=== PATIENT | female | born 1940 | race Caucasian/White ===

== ENCOUNTER 2020-01-03 09:33 | Inpatient (IN) | payer MEDICARE ==
[~2020-01-03] VITALS: Ht 160 cm; Wt 76.0 kg
[~2020-01-03 09:33] MED LIST: ACET325 PO; LEVSOD50 PO; VITAMIN D325 MCG PO
[2020-01-03 10:06] LABS: BASOPHILS ABSOLUTE AUTO 0.03 K/mm3 (0.00-0.23); BASOPHILS PERCENT AUTO 0 % (0-2); EOSINOPHILS ABSOLUTE AUTO 0.03 K/mm3 (0.00-0.68); EOSINOPHILS PERCENT AUTO 0 % (0-6); Hemoglobin 14.7 g/dL (11.5-16.0); IMMATURE GRAN ABSOLUTE AUTO 0.03 K/mm3 (0.00-0.10); IMMATURE GRAN PERCENT AUTO 0 % (0-1); LYMPHOCYTES ABSOLUTE AUTO 2.14 K/mm3 (0.84-5.20); LYMPHOCYTES PERCENT AUTO 15 % (21-46); MONOCYTES ABSOLUTE AUTO 0.99 K/mm3 (0.16-1.47); MONOCYTES PERCENT AUTO 7 % (4-13); Mean Corpuscular HGB 28.8 pg (26.0-34.0); Mean Corpuscular HGB Conc 32.7 g/dL (31.5-36.5); Mean Corpuscular Volume 88 fL (80-100); NEUTROPHILS ABSOLUTE AUTO 11.45 K/mm3 (1.96-9.15); NEUTROPHILS PERCENT AUTO 78 % (41-73); RDW Coefficient Variation 13.7 % (11.7-14.2); RDW Standard Deviation 44.4 fL (35.1-46.3); White Blood Cell Count 14.67 K/mm3 (4.00-11.30)
[2020-01-03 10:12] LABS: International Normalized Ratio 0.98; Prothrombin Time Results 10.5 Sec (9.7-11.5)
[2020-01-03 10:21] LABS: Mean Platelet Volume 12.2 fL (9.1-12.4); Platelet Count 178 K/mm3 (150-400)
[2020-01-03 10:45] LABS: Alanine Aminotransfer (ALT/SGP 23 U/L (12-78); Albumin, Blood 3.3 g/dL (3.4-5.0); Alk Phos 69 U/L (50-136); Anion Gap 7 mmol/L (6-16); Aspartate Aminotrans (AST/SGOT 127 U/L (12-37); Bilirubin, Total 0.4 mg/dL (0.1-1.0); Blood Urea Nitrogen 15 mg/dL (8-24); Bun/Creatinine Ratio 21.9 (12.0-20.0); CO2, Blood 25 mmol/L (21-32); Calcium, Blood 10.2 mg/dL (8.5-10.1); Chloride, Blood 102 mmol/L (98-108); Creatinine, Blood 0.68 mg/dL (0.40-1.00); Globulin, Blood 3.4 g/dL (2.2-4.0); Glomerular Filtration Rate >60 (60-); Glucose, Blood 119 mg/dL (70-99); Potassium, Blood 4.3 mmol/L (3.5-5.5); Sodium, Blood 134 mmol/L (136-145); Total Protein, Blood 6.7 g/dL (6.4-8.2)
--- NOTE | 2020-01-03 12:32 | NUR ---
Stat echocardiogram performed with Dr. Haider reviewing at bedside.
[2020-01-03] MEDS ORDERED: FLAX PO (13:45)
[2020-01-03] MEDS ORDERED: I-Vite1 EACH PO (13:46)
[2020-01-03] MEDS ORDERED: REMERON15 MG PO (15:29)
[2020-01-03] MEDS ORDERED: ALBU90OI6 INH (15:30)
[2020-01-03] MEDS ORDERED: Refresh Plus1 EACH BOTHEYES (15:33)
[2020-01-03] MEDS ORDERED: Omeprazole20 M1 PO (15:33)
[2020-01-03] MEDS ORDERED: WIXELA 100-501 EACH INH (15:34)
--- NOTE | 2020-01-03 16:23 | NUR ---
TO ICU 8 FROM OIL AGENT AT 1310, VSS, PT DENIES CP/PRESSURE/SOB/NAUSEA. HR 80'S NSR, PT ALERT AND ORIENTED X4, NO DRIPS INFUSING. TR BAND IN PLACE TO R RADIAL ACCESS SITE, SMALL HEMATOMA NOTED ABOVE TR BAND. OIL AGENT RN PLACED SECOND TR BAND PROXIMAL TO ORIGINAL BAND, NO ADDITIONAL GROWTH OF HEMATOMA NOTED AFTER SECOND BAND PLACED. DR. MENDOSA NOTIFIED OF HEMATOMA BY OIL AGENT RN, AT BEDSIDE TO ASSESS, NO NEW ORDERS. VS REMAIN STABLE, SISTER AT BEDSIDE. PT DENIES NEEDS, ASSESSMENTS COMPLETED.
--- NOTE | 2020-01-03 16:26 | NUR ---
UPDATE 1425: PT C/O 04/20 MID STERNAL CHEST PAIN AND PRESSURE, SOB, AND NAUSEA. NS INITIATED, NITRO SL ADMINISTERED X2, BP TOLERATED WELL BUT PT DENIES SYMPTOM RELIEF. EKG COMPLETED, DR. MENDOSA NOTIFIED, HAS VIEWED EKG, NEW ORDERS FOR MS AND NITRO GTT. MS 2MG ADMINISTERED, PT DENIES PAIN AFTER MS BUT STATES MILD SOB, MILD NAUSEA, AND MILD "HEAVINESS" IN CHEST REMAIN. DR. SCOTT, WILL REPEAT EKG AT 1600. VS REMAIN STABLE, HR 70'S-80'S SINUS. FAMILY AT BEDSIDE.
--- NOTE | 2020-01-03 16:31 | NUR ---
UPDATE EKG REPEATED AT 1600, VIEWED BY DR. NAVYA DR. ALSO AWARE OF CONTINUED SOB, NAUSEA, AND CHEST HEAVINESS C/O, NO NEW ORDERS AT THIS TIME. NITRO INFUSING AT 2MCG/MIN PER ORDER, VSS. TR BAND BEING DEFLATED SLOWLY, BRUISING NOTED UNDER BOTH TR BANDS BUT NO ADDITIONAL HEMATOMA GROWTH NOTED SINCE INITIAL EVALUATION. PT RESTING IN BED, DENIES NEEDS. FAMILY AT BEDSIDE. O2 2L/NC, LS CLEAR.
--- NOTE | 2020-01-03 19:17 | NUR ---
END OF SHIFT ATTEMPTED MULTIPLE TIMES TO DELFATE TR BAND, HEMATOMA INCREASED DISTAL TO ACCESS SITE. DISTAL TR BAND REINFLATED TO 8ML, PROXIMAL BAND REINFLATED TO 5ML. HEPARIN BOLUS ADMINISTERED, HEPARIN GTT INFUSING AT 15U PER ORDERS, VERIFIED WITH [place] FAY. NITRO GTT CONTNUES AT 2MCG, PT DENIES CHEST PAIN AND SOB AT THIS TIME. VSS, HR 80'S NSR, PT REMAINS ALERT, ORIENTED, AND APPROPRIATE. CMS AND RADIAL PULSE WNL TO RIGHT HAND. REPORT TO ONCOMING SHIFT.
--- NOTE | 2020-01-03 20:44 | NUR ---
ASSUMPTION OF CARE PT ALERT AND ORIENTED TO SELF, EVENT, PLACE AND FOLLOWING DIRECTIONS. OXYGEN SATURATIONS>90% ON RA, PLACED ON 3L PER NC WHILE SLEEPING TO MAINTAIN O2 SATS. MONITOR SHOWS SINUS RHYTHM, HR 80'S, BP STABLE, NITRO GTT @ 2mcg/min, HEPARIN @ 15u/kg (76kg, 22.8 ml/hr), PT DENIES ANY SOB CP/HEAVINESS AT THIS TIME. TR BAND x2 TO R WRIST, HEMATOMA PRESENT, SCANT BLOOD NOTED AT INSERTION SITE, DISTAL EXTREMITY WITH PURPLISH DISCOLORATION, PT DENIES ANY PAIN, NUMBNESS OR TINGLING IN R HAND, O2 PROBE IN PLACE ON R HAND FINGER, GOOD PLETH ON MONITOR. PT DENIES ANY GI/ ISSUES, TOLERATING PO INTAKE. PT EAGER TO AMBULATE AND GO HOME, PLEASANT AND COOPERATIVE, CALL LIGHT WITHIN REACH.
--- NOTE | 2020-01-03 23:59 | NUR ---
PT RESTS IN BED, AROUSABLE TO VERBAL STIMULI, PT REMAINS SOB CP/HEAVINESS FREE, BP LOW, NITRO PLACED ON SB. PT WITH QUESTIONS ABOUT CURRENT ILLNESS, CAUSES AND PREVENTABLE MEASURES. EDUCATED PT ABOUT HEALTHY DIET AND EXERCISE, PT EXPRESSES INTEREST IN CARDIAC REHAB AND DIET EDUCATION, STS SHE HAD PLANNED ON STARTING EXERCISE ROUTINE PRIOR TO [place].
[2020-01-04 00:51] LABS: BASOPHILS ABSOLUTE AUTO 0.02 K/mm3 (0.00-0.23); BASOPHILS PERCENT AUTO 0 % (0-2); EOSINOPHILS ABSOLUTE AUTO 0.05 K/mm3 (0.00-0.68); EOSINOPHILS PERCENT AUTO 0 % (0-6); Hematocrit 39.6 % (33.0-51.0); IMMATURE GRAN ABSOLUTE AUTO 0.05 K/mm3 (0.00-0.10); IMMATURE GRAN PERCENT AUTO 0 % (0-1); LYMPHOCYTES ABSOLUTE AUTO 1.79 K/mm3 (0.84-5.20); LYMPHOCYTES PERCENT AUTO 16 % (21-46); MONOCYTES ABSOLUTE AUTO 1.09 K/mm3 (0.16-1.47); MONOCYTES PERCENT AUTO 10 % (4-13); Mean Corpuscular HGB 29.1 pg (26.0-34.0); Mean Corpuscular HGB Conc 32.8 g/dL (31.5-36.5); Mean Corpuscular Volume 89 fL (80-100); Mean Platelet Volume 11.8 fL (9.1-12.4); NEUTROPHILS ABSOLUTE AUTO 8.43 K/mm3 (1.96-9.15); NEUTROPHILS PERCENT AUTO 74 % (41-73); Platelet Count 223 K/mm3 (150-400); RDW Coefficient Variation 13.7 % (11.7-14.2); RDW Standard Deviation 44.2 fL (35.1-46.3); Red Blood Cell Count 4.47 M/mm3 (3.80-5.20); White Blood Cell Count 11.43 K/mm3 (4.00-11.30)
[2020-01-04 01:05] LABS: International Normalized Ratio 1.1; Prothrombin Time Results 11.7 Sec (9.7-11.5)
[2020-01-04 01:11] LABS: Anion Gap 6 mmol/L (6-16); Blood Urea Nitrogen 10 mg/dL (8-24); Bun/Creatinine Ratio 15.8 (12.0-20.0); CHOL/HDL RATIO 3.7; CO2, Blood 24 mmol/L (21-32); Calcium, Blood 8.9 mg/dL (8.5-10.1); Chloride, Blood 109 mmol/L (98-108); Cholesterol 162 mg/dL (50-200); Creatinine, Blood 0.63 mg/dL (0.40-1.00); Glomerular Filtration Rate >60 (60-); Glucose, Blood 116 mg/dL (70-99); HDL Cholesterol 44 mg/dL (>39); LDL/HDL RATIO 2.2; Low Density Lipoprotein Chol 95 mg/dL (0-110); Potassium, Blood 3.7 mmol/L (3.5-5.5); Sodium, Blood 139 mmol/L (136-145); Triglycerides 114 mg/dL (30-160); Very Low Density Lipoprot Chol 22 mg/dL (6-32)
--- NOTE | 2020-01-04 06:24 | NUR ---
SHIFT SUMMARY PT AWAKE FOR MOST OF SHIFT, REMAINS ORIENTED. PT ON RA WHILE AWAKE AND 1.5L PER NC WHILE SLEEPING TO MAINTAIN O2 SATURATIONS>90%. MONITOR SHOWS SINUS RHYTHM, HR 70'S-80'S, PT HYPOTENSIVE WITH SBP 70'S-80'S AND MAPS 50'S, CALL TO DR CASTRO, 500ml LR BOLUS ORDERED, BP IMPROVED BUT NOW TRENDING DOWN THIS AM. NO SIGNS OF BLEEDING, R RADIAL SITE STABLE, TR BANDS REMOVED @ 0430 (SEE WOUND ASSESSMENT), PT DENIES DIZZINESS, EKG COMPLETED THIS AM, SEE CHART. NITRO GTT ON SB @ 0000 DUE TO HYPOTENSION (SEE FLOWSHEET. PT WITH MILD CHEST TIGHTNESS AND THROAT PN THIS AM, STS WORSE WITH COUGH AND INSPIRATION, PT WITH FREQUENT DRY COUGH, PT STS PAIN IS NOT THE SAME PREVIOUS PAIN WITH AR. PT EAGER TO GO HOME, INTERESTED IN CARDIAC REHAB AND DIETARY EDUCATION FOR HEART HEALTH.
--- NOTE | 2020-01-04 08:11 | NUR ---
ASSUMED CARE: RECEIVED BEDSIDE REPORT FROM HUBER RN. PT WAKES EASILY UPON ENTERING THE ROOM AND PARTICIPATES IN REPORT. PT DENIES PAIN OR DISCOMFORT DURING REPORT. HEPARIN RUNNING PER ORDER VERAFIED WITH HUBER RN. DR EUGENE IN TO SEE THE PT AT THIS TIME. NEW ORDERS FOR LASIX AND TO DC IVF. BP IS NOTED TO BE LOW WILL MONITOR CLOSELY WITH LASIX ADMINISTRATION. BED IN LOWEST POSSITION AND CALL LIGHT IN REACH.
--- NOTE | 2020-01-04 13:27 | NUR ---
DIETARY: PT IS SITTING UP IN THE RECLINER TALKING WITH A VISITOR. PT HAD REQUESTED TO HAVE DIETARY EDUCATE HER ON A HEART HEALTHY DIET. AMMY CAME IN TO TALK WITH THE PT AND VISITOR IN THE ROOM.
--- NOTE | 2020-01-04 19:00 | NUR ---
REPORT: GAVE REPORT TO INSTRUMENT PERSON AND TOP DISTRIBUTION EXECUTIVE TO CARE FOR PT UNTIL PT MOVES TO PCU.
--- NOTE | 2020-01-04 21:49 | NUR ---
ASSUMPTION OF CARE ASSUMED CARE OF PT @ 1900, PT SITTING AT SIDE OF BED, ALERT AND ORIENTED TO SELF, PLACE, EVENT, AND FOLLOWING DIRECTIONS. PT DENIES ANY PAIN, CP/HEAVINESS OR SOB. ON RN POST PARTUM, SINUS RHYTHM, HR 70'S-80'S, VSS, PT ON RA. R RADIAL SITE STABLE, HEMATOMA IMPROVED FROM PREVIOUS SHIFT, WRIST BOARD IN PLACE. PT DENIES GI/ ISSUES. PT VERBALIZES DESIRE TO BE DC'D HOME TOMORROW.
--- NOTE | 2020-01-05 06:25 | NUR ---
SHIFT SUMMARY NO ACUTE CHANGES THIS SHIFT. PT RESTED WELL THROUGH NIGHT, MAINTAINS O2 SATURATIONS>90% ON RA, VSS. PT DENIES CP/HEAVINESS AND SOB T/O SHIFT. PT AMBULATES ON OWN IN ROOM, DENIES GI/ ISSUES. R RADIAL SITE REMAINS STABLE. PT VERY APPRECIATIVE OF CARE BUT IS ANXIOUS TO GO HOME, STS SON IS TRAVELING FROM [place] TO STAY WITH PT FOR A COUPLE OF DAYS.
--- NOTE | 2020-01-05 08:02 | NUR ---
BEDSIDE REPORT TAKEN AT 0700. PT AWAKE AND ALERT. DENIES ALL COMPLAINTS. PT SITTING UP IN CHAIR. VSS. PT VERY ANXIOUS TO BE DISCHARGED HOME TODAY. DR PARRA CALLED FOR CLARIFICATION. THERE WAS NO CLOT SEEN ON REPEAT ECHO STUDY; PT WILL NOT NEED XARELTO. PT WILL BE DISCHARGED ON [facility] AND [facility].
--- NOTE | 2020-01-05 08:50 | NUR ---
DR EUGENE AND DR PARRA IN TO EE PT. PT TO BE DC'D THIS M. PT VERY HAPPY TO GO HOME.
[2020-01-05] MEDS ORDERED: ATOR20 PO (09:36)
[2020-01-05] MEDS ORDERED: ASPI81CH PO (09:36)
[2020-01-05] MEDS ORDERED: CLOP75 PO (09:37)
[2020-01-05] MEDS ORDERED: Lisinopril2.5 MG PO (09:38)
[2020-01-05] MEDS ORDERED: METO25ER PO (09:39)
[2020-01-05] MEDS ORDERED: NITR.4SL SL (09:42)
--- NOTE | 2020-01-05 10:40 | NUR ---
DISCHARGE TO HOME: D/C PAPERWORK COMPLETED BY KOSTA BRUSH, RN. THIS RN AT BEDSIDE TO COMPLETE D/C EDUCATION. [facility] CONTRACT & RADIAL SITE CARE CONTRACT HAVE BEEN SIGNED. F/U APPOINTMENTS MADE FOR PT & DISCUSSED. PT VERBALIZES UNDERSTANDING OF ALL D/C TEACHING, INCLUDING NEW MEDICATIONS, BP MONITORING AT HOME & PARAMETERS FOR BP MEDS. ALL MONITORS & PIVs REMOVED, PT TAKEN OUT VIA WC BY THIS RN AT 1030. ALL BELONGINGS & D/C PACKET HAVE BEEN TAKEN OUT W/ PT.
== END 2020-01-05 10:30 | disposition home or self-care (01) | DRG 247 ==
LOC: ER 09:33 → ICUE 11:13 → ICUW 11:13 → ICUE 11:48
PROVIDERS: Emergency Medicine; Pharmacist; ADMIT Hospitalist
PROC: 4A023N7 Measurement of Cardiac Sampling and Pressure, Left Heart, Percutaneous Approach (ICD-10-PCS; principal; 2020-01-03)
PROC: 027034Z Dilation of Coronary Artery, One Artery with Drug-eluting Intraluminal Device, Percutaneous Approach (ICD-10-PCS; 2020-01-03)
PROC: B2111ZZ Fluoroscopy of Multiple Coronary Arteries using Low Osmolar Contrast (ICD-10-PCS; 2020-01-03)
DX: I21.4 Non-ST elevation (NSTEMI) myocardial infarction (principal); E03.9 Hypothyroidism, unspecified; M81.0 Age-related osteoporosis without current pathological fracture; Z87.891 Personal history of nicotine dependence; D72.829 Elevated white blood cell count, unspecified; R09.02 Hypoxemia; I51.3 Intracardiac thrombosis, not elsewhere classified
CPT/HCPCS: 36415; 71045; 80048; 80053; 80061; 83036; 84484; 85025; 85347; 85610; 85730; 92921; 93005; 93010; 93308; 93321; 93454; 99152; 99153; 99285-25; A9270-GY; C1725; C1769; C1874; C1887; C1894; C8929; C9600; J0153; J1644; J1650; J1940; J2250; J2270; J2405; J3010; J7030; J7120; Q9967

== ENCOUNTER 2020-07-12 07:23 | Day surgery (SDC) | payer MEDICARE ==
[~2020-07-12] VITALS: Ht 160 cm; Wt 71.4 kg
[~2020-07-12 07:23] MED LIST changes: +ALBU90OI6 INH; +ASPI81CH PO; +ATOR20 PO; +CLOP75 PO; +FLAX PO; +I-Vite1 EACH PO; +Lisinopril2.5 MG PO; +METO25ER PO; +NITR.4SL SL; +Omeprazole20 M1 PO; +PANT40 PO; +REMERON15 MG PO; +Refresh Plus1 EACH BOTHEYES; +VITAMIN D31000 UNI1 PO; +WIXELA 100-501 EACH INH
--- NOTE | 2020-07-12 08:05 | NUR ---
07/12/20 0805 Ludivina Currie 1 TRY RIGHT HAND BLEW 2 TRY RIGHT UPPER FOREARM NO FLASH 3 TRY UPPER RIGHT FOREARM GOOD
--- NOTE | 2020-07-12 09:35 | NUR ---
07/12/20 0935 Keyana Hernandez PT WAITING FOR [facility]A SHUTTLE, RESTING COMFORTABLY IN BED. CALL LIGHT WITHIN REACH, DENIES NEEDS AT THIS TIME. SHUTTLE WAS SCHEDULED TO ARRIVE AT 1100. CALLED & REQUESTED EARLIER PICKUP; SHUTTLE WILL ATTEMPT, BUT NOT ABLE TO CONFIRM.
== END 2020-07-12 09:35 | disposition home or self-care (01) ==
LOC: ORSCSDS 07:23
PROVIDERS: Student in an Organized Health Care Education/Training Program
PROC: 0DJ08ZZ Inspection of Upper Intestinal Tract, Via Natural or Artificial Opening Endoscopic (ICD-10-PCS; principal; 2020-07-12 09:00)
DX: R10.13 Epigastric pain (principal); R93.3 Abnormal findings on diagnostic imaging of other parts of digestive tract; K44.9 Diaphragmatic hernia without obstruction or gangrene; I25.10 Atherosclerotic heart disease of native coronary artery without angina pectoris; F41.8 Other specified anxiety disorders; E03.9 Hypothyroidism, unspecified; Z79.82 Long term (current) use of aspirin; Z87.891 Personal history of nicotine dependence; Z79.01 Long term (current) use of anticoagulants; Z79.899 Other long term (current) drug therapy
CPT/HCPCS: J0461; J2405; J2704; J7120

== ENCOUNTER → 2020-07-20 | Outpatient (CLI) | payer MEDICARE | END | disposition home or self-care (01) | LOC: LAB 12:31 → LAB SHORT 12:31 → LAB FUT 07-12 11:10 | DX: R14.0 Abdominal distension (gaseous) (principal) | CPT/HCPCS: 87338 ==

== ENCOUNTER → 2021-05-11 | Outpatient (CLI) | payer MEDICARE ==
[2021-05-11 09:56] LABS: Source, Urine Clean Catch
[2021-05-11 12:25] LABS: Appearance, Urine Clear (Clear); Bilirubin, Urine Neg (Neg); Blood, Urine 3+ (Neg); Color, Urine Yellow (P-Yellow); Glucose Qualitative, Urine Neg (Neg); Ketones, Urine Neg (Neg); Leukocyte Esterase, Urine 2+ (Neg); Nitrite, Urine Neg (Neg); Protein, Urine 1+ (Neg); Specific Gravity, Urine 1.015 (1.003-1.022); Urobilinogen, Urine NORM (Normal)
[2021-05-11 12:57] LABS: White Blood Cells, Urine 50-100 /hpf (0-5)
[2021-05-11 12:58] LABS: Bacteria Many /hpf; Squamous Epithelial Cells Few /hpf (Few)
== END | disposition home or self-care (01) ==
LOC: LAB SHORT 09:53
PROVIDERS: Internal Medicine
DX: R30.0 Dysuria (principal)
CPT/HCPCS: 81001; 87077; 87086; 87186

== ENCOUNTER → 2021-05-24 | Outpatient (CLI) | payer MEDICARE ==
[2021-05-24 09:33] LABS: Source, Urine Clean Catch
[2021-05-24 12:24] LABS: Appearance, Urine Hazy (Clear); Bilirubin, Urine Neg (Neg); Blood, Urine 3+ (Neg); Color, Urine Yellow (P-Yellow); Glucose Qualitative, Urine Neg (Neg); Ketones, Urine Neg (Neg); Leukocyte Esterase, Urine 3+ (Neg); Nitrite, Urine Neg (Neg); Protein, Urine 2+ (Neg); Urobilinogen, Urine NORM (Normal)
[2021-05-24 12:49] LABS: White Blood Cells, Urine 50-100 /hpf (0-5)
[2021-05-24 12:50] LABS: Bacteria Mod /hpf
[2021-05-24 12:51] LABS: Squamous Epithelial Cells Rare /hpf (Few); Transitional Epithelial Cells Rare /hpf (0-Rare)
== END | disposition home or self-care (01) ==
LOC: LAB SHORT 09:30
PROVIDERS: Internal Medicine
DX: R30.0 Dysuria (principal)
CPT/HCPCS: 81001; 87077; 87086; 87186

== ENCOUNTER → 2021-06-09 | Outpatient (CLI) | payer MEDICARE ==
[2021-06-09 09:23] LABS: Source, Urine Clean Catch
[2021-06-09 13:26] LABS: Appearance, Urine Cloudy (Clear); Bilirubin, Urine Neg (Neg); Blood, Urine 3+ (Neg); Color, Urine Yellow (P-Yellow); Glucose Qualitative, Urine Neg (Neg); Ketones, Urine Neg (Neg); Leukocyte Esterase, Urine 3+ (Neg); Nitrite, Urine Pos (Neg); Protein, Urine 2+ (Neg); Urobilinogen, Urine NORM (Normal)
[2021-06-09 14:23] LABS: White Blood Cells, Urine 50-100 /hpf (0-5)
[2021-06-09 14:24] LABS: Bacteria Many /hpf; Red Blood Cells, Urine 0-2 /hpf (0-2); Squamous Epithelial Cells Rare /hpf (Few)
== END ==
LOC: LAB 09:20 → LAB SHORT 09:20
PROVIDERS: Internal Medicine
DX: R30.0 Dysuria (principal)
CPT/HCPCS: 81001; 87077; 87086; 87186

== ENCOUNTER → 2022-03-20 | Outpatient (CLI) | payer OTHER | END | disposition home or self-care (01) | LOC: PLD 15:22 → LAB SHORT 15:22 | DX: L81.8 Other specified disorders of pigmentation (principal) | CPT/HCPCS: 88305; 88313 ==

== ENCOUNTER → 2022-05-29 | Outpatient (CLI) | payer OTHER ==
[2022-05-29 13:48] LABS: Source, Urine Clean Catch
[2022-05-29 19:04] LABS: Appearance, Urine Clear (Clear); Bilirubin, Urine Neg (Neg); Blood, Urine Neg (Neg); Color, Urine Yellow (P-Yellow); Glucose Qualitative, Urine Neg (Neg); Ketones, Urine Neg (Neg); Leukocyte Esterase, Urine 1+ (Neg); Nitrite, Urine Neg (Neg); Protein, Urine Neg (Neg); Urobilinogen, Urine NORM (Normal)
[2022-05-29 19:22] LABS: Bacteria Few /hpf; Red Blood Cells, Urine 0-2 /hpf (0-2); Squamous Epithelial Cells Few /hpf (Few)
== END | disposition home or self-care (01) ==
LOC: LAB SHORT 13:44 → LAB 13:44
PROVIDERS: Internal Medicine
DX: R30.0 Dysuria (principal)
CPT/HCPCS: 81001

== ENCOUNTER → 2023-03-18 | Outpatient (CLI) | payer OTHER | END | disposition home or self-care (01) | LOC: LAB 10:59 → LAB SHORT 10:59 | DX: K21.9 Gastro-esophageal reflux disease without esophagitis (principal) | CPT/HCPCS: 87338 ==

== ENCOUNTER → 2023-10-08 | Outpatient (CLI) | payer OTHER ==
[2023-10-08 11:59] LABS: Source, Urine Clean Catch
[2023-10-08 12:54] LABS: Appearance, Urine Clear (Clear); Bilirubin, Urine Neg (Neg); Blood, Urine Neg (Neg); Color, Urine Yellow (P-Yellow); Glucose Qualitative, Urine Neg (Neg); Ketones, Urine Neg (Neg); Leukocyte Esterase, Urine Neg (Neg); Nitrite, Urine Neg (Neg); Protein, Urine Neg (Neg); Specific Gravity, Urine 1.015 (1.003-1.022); Urobilinogen, Urine NORM (Normal); pH, Urine 6.5 (5.0-8.0)
== END ==
LOC: LAB 11:56 → LAB SHORT 11:56
PROVIDERS: Internal Medicine
DX: N39.0 Urinary tract infection, site not specified (principal)
CPT/HCPCS: 81003

== ENCOUNTER → 2025-06-30 | Outpatient (CLI) | payer OTHER ==
[2025-06-30 10:37] LABS: Bilirubin, Urine Neg (Neg); Color, Urine Yellow (P-Yellow); Glucose Qualitative, Urine Neg (Normal); Ketones, Urine Neg (Neg); Leukocyte Esterase, Urine 2+ (Neg); Protein, Urine Neg (Neg); Source, Urine Clean Catch; Specific Gravity, Urine 1.020 (1.003-1.022); Urobilinogen, Urine NORM (Normal)
[2025-06-30 10:38] LABS: Red Blood Cells, Urine Not Seen /hpf (0-2); White Blood Cells, Urine 50-100 /hpf (0-5); Yeast/Fungi Urine Rare /hpf
== END ==
LOC: LAB SHORT 10:15 → LAB 10:15
PROVIDERS: Internal Medicine
DX: N39.0 Urinary tract infection, site not specified (principal)
CPT/HCPCS: 81001; 87077; 87086; 87186